=== PATIENT | female | born 1990 | race African-American/Black ===

== ENCOUNTER 2020-05-04 10:31 | Emergency (ER) | payer OTHER ==
[~2020-05-04] VITALS: Ht 170.2 cm; Wt 108.0 kg
[2020-05-04 10:47] VITALS: BP 145/76
[2020-05-04] MEDS ORDERED: LIDOCAINE 1% PF 30 ML VIAL. INJ ONE (11:00)
[2020-05-04] MEDS ORDERED: LIDOCAINE 1% Multi-Dose 20 ML VIAL. ONE (11:02)
--- NOTE | 2020-05-04 11:03 | PHYS DOC ---
Past History Past Medical History: Other Additional Past Medical Histor: gestational dm Past Surgical History: No Surgical History Alcohol Use: None General Adult EDM: Chief Complaint: FINGER INJURY HPI: HPI: Patient is a 30-year-old female who is about 33 weeks and right-handed presents with pain to her right index finger. Patient had nail put on about a week and a half ago and had some pus draining by herself about a week ago and 3 days ago started to swell up again on the ulnar side of the right index finger nail. Patient describes 6-7 out of throbbing pain that is worse with palpation. Review of Systems: Review of Systems: Constitutional: Denies fever or chills Eyes: Denies change in visual acuity HENT: Denies nasal congestion or sore throat Respiratory: Denies cough or shortness of breath Cardiovascular: Denies chest pain or edema GI: Denies abdominal pain, nausea, vomiting, bloody stools or diarrhea : Denies dysuria Musculoskeletal: Complains of right finger pain Integument: Denies rash Neurologic: Denies headache, focal weakness or sensory changes Endocrine: Denies polyuria or polydipsia Lymphatic: Denies swollen glands Psychiatric: Denies depression or anxiety Current Medications: Current Meds: Current Medications Medications (Trade) Dose Ordered Sig/Goyo Start Time Stop Time Status Last Admin Dose Admin Lidocaine HCl (Lidocaine 1% Pf) 30 ml 1X ONCE 05/04/20 11:00 05/04/20 11:01 UNV Allergies: Allergies: Allergies Coded Allergies Type Severity Reaction Last Updated Verified No Known Drug Allergies 05/04/20 No Physical Exam: PE: Constitutional: Well developed, well nourished, no acute distress, non-toxic appearance. [] HENT: Normocephalic, atraumatic, bilateral external ears normal, no trismus nose normal. [] Eyes: PERRLA, EOMI, conjunctiva normal, no discharge. [] Neck: Normal range of motion, no tenderness, supple, no stridor. [] Cardiovascular:Heart rate regular rhythm, cap refill less than 2 seconds Lungs & Thorax: Bilateral breath sounds clear, no respiratory distress Abdomen: Gravid uterus Skin: Warm, dry, no rash. [] Back: No tenderness, no CVA tenderness. [] Extremities: Tenderness and swelling and fluctuance to the ulnar side of the right index finger. No evidence of flexor tenosynovitis Neurologic: Alert and oriented X 3, normal motor function, normal sensory function, no focal deficits noted. [] Psychologic: Affect normal, judgement normal, mood normal. [] Current Patient Data: Vital Signs: Vital Signs Date Time Temp Pulse Resp B/P (MAP) Pulse Ox O2 Delivery O2 Flow Rate FiO2 05/04/20 10:47 97.9 77 18 145/76 (99) 98 Room Air EKG: EKG: [] Radiology/Procedures: Radiology/Procedures: Procedure note: Clinical indication: Paronychia right index finger Procedure: Incision and drainage of paronychia on right index finger After obtaining verbal consent a digital block was performed on the right index finger using a dorsal approach with 1% lidocaine. Approximately 3 cc of lidocaine was infused. Patient had persistent sensation on the ulnar side there for about 0.5 cc of lidocaine was infused more distally. The skin around the paronychia on the ulnar side was prepped with Betadine. An 11 blade was used to make a stab incision and a large amount of purulent material was expressed. The wound was then explored and irrigated with normal saline. No more purulent material was remaining. Dressing applied. Patient tolerated well. Heart Score: Risk Factors: Risk Factors: DM, Current or recent (<one month) smoker, HTN, HLP, family history of CAD, obesity. Risk Scores: Score 0 - 3: 2.5% MACE over next 6 weeks - Discharge Home Score 4 - 6: 20.3% MACE over next 6 weeks - Admit for Clinical Observation Score 7 - 10: 72.7% MACE over next 6 weeks - Early Invasive Strategies Course & Med Decision Making: Course & Med Decision Making Pertinent Labs and Imaging studies reviewed. (See chart for details) [] Dragon Disclaimer: Dragon Disclaimer: This electronic medical record was generated, in whole or in part, using a voice recognition dictation system. Departure Departure: Impression: Primary Impression: Paronychia of right index finger Disposition: 01 DC HOME SELF CARE/HOMELESS Condition: STABLE Referrals: [facility] (PCP) PERRY BOWLING MD Follow-up with orthopedist or here in 2 to 3 days for wound recheck. Patient Instructions: Paronychia Additional Instructions: EMERGENCY DEPARTMENT GENERAL DISCHARGE INSTRUCTIONS Thank you for coming to [facility] (ED) today and trusting us with you care. We trust that you had a positivie experience in our Emergency Department. If you wish to speak to the department management, you may call the director at [phone]. YOUR FOLLOW UP INSTRUCTIONS ARE FOLLOWS: 1. Do you have a private Doctor? If you do not have a private doctor, please ask for a resource list of physicians or clinics that may be able to assist you with follow up care. 2. The Emergency Physician has interpreted your x-rays. The X-Ray specialist will also review them. If there is a change in the findings, you will be notified in 48 hours when at all possible. 3. A lab test or culture has been done, your results will be reviewed and you will be notified if you need a change in treatment. ADDITIONAL INSTRUCTIONS AND INFORMATION: 1. Your care today has been supervised by a physician who is specially trained in emergency care. Many problems require more than one evaluation for a complete diagnosis and treatment. We recommend that you schedule your follow up appointment as recommended to ensure complete treatment of you illness or injury. If you are unable to obtain follow up care and continue to have a problem, or if your condition worsens, we recommend that you return to the ED. 2. We are not able to safely determine your condition over the phone nor are we able to give sound medical advice over the phone. For these safety reasons, if you call for medical advice we will ask you to come to the ED for further evaluation. 3. If you have any questions regarding these discharge instructions please call the ED at [phone]. SAFETY INFORMATION: In the interest of safety, wellness, and injury prevention; we encourage you to wear your sealbelt, if you smoke; quite smoking, and we encourage family to use a protec tive helmet for bicycling and other sporting events that present an increased risk for head injury. IF YOUR SYMPTOMS WORSEN OR NEW SYMPTOMS DEVELOP, OR YOU HAVE CONCERNS ABOUT YOUR CONDITION; OR IF YOUR CONDITION WORSENS WHILE YOU ARE WAITING FOR YOUR FOLLOW UP APPOINTMENT; EITHER CONTACT YOUR PRIMARY CARE DOCTOR, THE PHYSICIAN WHOSE NAME AND NUMBER YOU WERE GIVEN, OR RETURN TO THE ED IMMEDIATELY. Return if increased redness, warmth, swelling to the right index finger finger. Take antibiotics as prescribed. Tylenol for pain Scripts Clindamycin Hcl (CLINDAMYCIN HCL) 300 Mg Capsule 1 CAP PO QID for PARONYCHIA, #40 CAP Prov: MARLEE LOWRY MD 05/04/20 MARLEE LOWRY MD May 04, 2020 11:03
[2020-05-04] MEDS ORDERED: CLIN300C8 PO (11:27)
== END 2020-05-04 11:33 | disposition home or self-care (01) ==
LOC: ER 10:31
DX: O99.891 Other specified diseases and conditions complicating pregnancy (principal); L03.011 Cellulitis of right finger; Z3A.33 33 weeks gestation of pregnancy
CPT/HCPCS: 10060; 99283

== ENCOUNTER → 2020-06-02 | Outpatient (CLI) | payer OTHER ==
[2020-05-04 10:47] VITALS: BP 145/76
[~2020-06-02] MED LIST: CLIN300C8 PO
--- NOTE | 2020-06-02 15:02 | RAD ---
EXAM: Obstetrics sonogram. HISTORY: Polyhydramnios. TECHNIQUE: Sonographic imaging of a gravid uterus was performed. COMPARISON: None. FINDINGS: There is a single intrauterine fetus in cephalic presentation with a normal heart rate of 1 41 bpm. There is body motion. The stomach, kidneys, brain and heart are unremarkable. The cervix is closed and measures 3.6 cm in length. The anatomic fluid index is normal at 10.1 cm. There is a posterior placenta without evidence of placenta previa. There is a three-vessel umbilical cord. The biparietal diameter is 8.75 cm, corresponding with 35 weeks and 2 days. The head circumference is 32.18 cm, corresponding with 36 weeks and 2 days. The abdominal circumference is 32.48 cm, correspon ding with 36 weeks and 3 days. The femoral length is 6.77 cm, corresponding with 34 weeks and 6 days. The estimated gestational age patient combined ultrasound measurements is 35 weeks and 5 days and the estimated weight is 2788 g. This corresponds with the 39th percentile for a gestational age of 36 weeks and 3 days based on LMP. IMPRESSION: 1. Single imaging fetus in cephalic presentation with normal heart rate and gestational age based on ultrasound measurements of 35 weeks and 5 days. 2. Note is made that the anatomy is not formally assessed on this exam due to late gestational age. There is no evidence of polyhydramnios. Electronically signed by: Fidelina Benton MD (06/02/2020 3:00 PM) [id number]
== END ==
LOC: US 13:29
PROVIDERS: ATTEND Obstetrics & Gynecology
DX: O40.3XX0 Polyhydramnios, third trimester, not applicable or unspecified (principal); Z3A.35 35 weeks gestation of pregnancy
CPT/HCPCS: 76815